=== PATIENT | male | born 1990 | race Two or more races ===

== ENCOUNTER 2023-01-25 14:32 | Emergency (ER) | payer MEDICAID, OTHER ==
[~2023-01-25] VITALS: Ht 182.9 cm; Wt 144.4 kg
[2023-01-25 14:58] LABS: Basophils # (auto) 0.1 10 ^3/uL (0-0.2); Basophils % (auto) 0.5 % (0.0-2.0); Eosinophils # (auto) 0.1 10 ^3/uL (0-0.8); Eosinophils % (auto) 1.1 % (0.0-7.0); Hematocrit 47.4 % (41.0-53.0); Hemoglobin 15.5 g/dL (13.5-17.5); Lymphocytes % (auto) 25.6 % (10.0-50.0); Mean Corpuscular Hemoglobin 29.9 pg (28.0-32.0); Mean Corpuscular Hgb Conc. 32.7 g/dL (32.0-36.0); Mean Corpuscular Volume 91.2 fL (80.0-100.0); Monocytes # (auto) 0.7 10 ^3/uL (0-1.3); Monocytes % (auto) 6.3 % (0.0-12.0); Neutrophils # (auto) 7.7 10 ^3/uL (1.6-8.6); Neutrophils % (auto) 66.5 % (37.0-80.0); Red Cell Distribution Width 14.4 % (11.8-14.3); White Blood Cell 11.6 10^3/uL (4.4-10.8)
[2023-01-25 15:02] LABS: Urine Bacteria NONE SEEN /hpf (None Seen); Urine Blood Negative /uL (Negative); Urine Mucus FEW (None Seen); Urine Specific Gravity 1.028 (1.001-1.035); Urine WBC 1 /hpf (0 - 3)
[2023-01-25 15:22] LABS: Albumin 3.8 g/dL (3.4-5.0); Calcium 9.2 mg/dL (8.5-10.1); Potassium 4.1 mmol/L (3.5-5.1)
[2023-01-25 15:24] LABS: BUN/Creatinine Ratio 18.6 (10.0-20.0); Bilirubin, Total 0.2 mg/dL (0.2-1.0); Total Protein 7.1 g/dL (6.4-8.2)
[2023-01-25] MEDS ORDERED: FAMOTIDINE 20 MG TAB PO ONE (16:00)
[2023-01-25] MEDS ORDERED: ACETAMINOPHEN 325 MG TAB PO ONE (16:00)
[2023-01-25] MEDS ORDERED: ASPirin 81 mg TAB PO ONE (16:00)
[2023-01-25] MEDS ORDERED: LORazepam 0.5 MG TAB PO ONE (16:00)
[2023-01-26 00:45] VITALS: BP 122/79
[2023-01-26] MEDS ORDERED: IBUP-1456 PO (02:43)
[2023-01-26] MEDS ORDERED: TAMS-35 PO (02:43)
== END 2023-01-26 03:06 | disposition home or self-care (01) ==
LOC: ER 14:32
DX: N23 Unspecified renal colic (principal); R07.89 Other chest pain; Z87.442 Personal history of urinary calculi
CPT/HCPCS: 36415; 71045; 74176; 80053; 81001; 83690; 84484; 85025; 93005